=== PATIENT | male | born 1980 ===

== ENCOUNTER 2018-04-21 14:15 | Inpatient (IN) | payer OTHER ==
[~2018-04-21] VITALS: Ht 182.9 cm; Wt 83.9 kg
[2018-04-30] MEDS ORDERED: INTESTINEX680 M1 PO (11:50)
[2018-04-30] MEDS ORDERED: OXYC1TAB9 PO (11:50)
== END 2018-04-30 13:46 | disposition home or self-care (01) | DRG 331 ==
LOC: EDSTATUS 14:15 → ADM 14:15 → SURG 04-28 07:54 → O/R 04-28 07:54 → SURH 04-28 11:45 → SURG 04-28 13:49 → SURH 04-28 14:15 → SURG 04-30 13:46
PROVIDERS: Surgery
PROC: 07TC4ZZ Resection of Pelvis Lymphatic, Percutaneous Endoscopic Approach (ICD-10-PCS; 2018-04-28)
PROC: 0DTK4ZZ Resection of Ascending Colon, Percutaneous Endoscopic Approach (ICD-10-PCS; principal; 2018-04-28 11:45)
DX: D12.2 Benign neoplasm of ascending colon (principal)

== ENCOUNTER 2019-05-02 07:51 | Day surgery (SDC) | payer OTHER ==
[~2019-05-02 07:51] MED LIST: INTESTINEX680 M1 PO; OXYC1TAB9 PO
== END 2019-05-02 11:40 | disposition home or self-care (01) ==
LOC: AMB-ENDOS 07:51
DX: K64.8 Other hemorrhoids (principal)